=== PATIENT | male | born 1965 | race Caucasian/White ===

== ENCOUNTER 2019-08-23 08:37 | Day surgery (SDC) | payer OTHER ==
[~2019-08-23 08:37] MED LIST: DOK250 MG PO; ENBREL MIN50 MG/1 ML SUB-Q; IBUPROFEN800 MG PO; LEFLUNOMIDE20 MG PO; MAGNESIUM OXID420 MG PO; OMEPRAZOLE20 MG PO; PERCOCET 5-3251 EACH PO; PRAVACHOL40 MG PO; VITAMIN D31000 UNI1 PO; ZYRTEC10 M3 PO
--- NOTE | 2019-08-23 10:03 | NUR ---
08/23/19 Rachell3 Alison Botello 1438-PATIENT ARRIVED TO PACU ON 3L NC PLACED ON 2L NC RR EVEN. PATIENT DROWSY EYES OPEN DENIES PAIN OR NAUSEA. ABDOMEN SOFT. LAYING LEFT LATERAL. IVF INFUSING 1000-PATIENT AROUSING TO VERBAL STIMULI REPOSITIONS SELF IN BED DROWSY BACK TO SLEEP. RR EVEN.
--- NOTE | 2019-08-24 05:57 | OR ---
[facility] [address], [place] [address] Signed DATE OF OPERATION: 08/23/2019 SURGEON: Isabel Salamanca MD PREOPERATIVE DIAGNOSES: 1. Screening. 2. Chronic anal fissure. POSTOPERATIVE DIAGNOSES: 1. Minimal sigmoid diverticulosis. 2. Moderate-sized anal skin tag x1. PROCEDURE: Colonoscopy without biopsy. ESTIMATED BLOOD LOSS: None. INDICATIONS: Aby is a 54-year-old gentleman, who was asked to see me for his initial screening colonoscopy. He spoke of a chronic anal fissure for at least 15 years. He takes a stool softener and says he does fine. Once around, he sees little bleeding if his stool gets too large. Otherwise, he has no lower GI complaints. There is no family history of colon cancer or polyps. In the office, I gave Aby a pamphlet on colonoscopy as well as hemorrhoids, anal fissures and skin tags. We have reviewed colonoscopy in detail along with its risks including, but not limited to gas, bloating, crampy abdominal pain, bleeding, perforation requiring surgery, and missed diagnosis. We also discussed the need for IV conscious sedation. He had expressed understanding and wished to proceed. PROCEDURE NOTE: Aby was taken into our endoscopy suite and placed in the left lateral decubitus position. He was given IV sedation with 8 mg of Versed and 150 mcg of fentanyl. A digital rectal exam was performed. He does have a moderate-sized indurated external anal skin tag. No obvious anal fissure in the anterior posterior midline. He has good sphincter tone. Prostate just a little indurated but not particularly enlarged. The adult colonoscope was introduced and advanced all around into the cecum under direct visualization of camera without difficulty. He had a few seeds in the cecum, so I could not irrigate and suction that out completely. However, we looked around and it was unremarkable. We could see the appendiceal orifice and the ileocecal valve. Pictures Electronically Signed By: ISABEL SALAMANCA MD 08/24/19 0557 PATIENT NAME: ABY YA OPERATIVE REPORT DATE OF : 69 REPORT #: [id number] PHYSICIAN: ISABEL SALAMANCA MD PCP: MARCUS CASILLAS MD REPORT IS CONFIDENTIAL AND NOT TO BE RELEASED WITHOUT AUTHORIZATION [facility] [address], [place] [address] Signed were taken throughout for photodocumentation. The scope was slowly withdrawn. He had a just a few diverticula in the sigmoid colon. They were [id number] in size, few in number, and scattered about. The rectum was unremarkable. Upon retroflexion of scope, he does have some minimal internal hemorrhoid tissue along with this moderate-sized internal anal skin tag. I do not see it at the top as a hypertrophied papillae from a chronic anal fissure. It looks like a very traditional anal skin tag. After this, the gas was suctioned out and the colonoscope removed. Aby tolerated procedure quite well. RECOMMENDATIONS: Aby can follow up in 10 years for repeat colonoscopy. Isabel Salamanca MD ALB/MODL /[id number] cc: MD Isabel Restrepo MD Copies: MARCUS CASILLAS MD, ANDREW L MD ~ Electronically Signed By: ISABEL SALAMANCA MD 08/24/19 0557 PATIENT NAME: ABY YA OPERATIVE REPORT DATE OF : 69 REPORT #: [id number] PHYSICIAN: ISABEL SALAMANCA MD PCP: MARCUS CASILLAS MD REPORT IS CONFIDENTIAL AND NOT TO BE RELEASED WITHOUT AUTHORIZATION
== END 2019-08-23 10:35 | disposition home or self-care (01) ==
LOC: OPS 08:37 → DS 08:42 → OPS 09:45 → DS 09:45 → OPS 10:35
PROVIDERS: Colon & Rectal Surgery
PROC: 0DJD8ZZ Inspection of Lower Intestinal Tract, Via Natural or Artificial Opening Endoscopic (ICD-10-PCS; principal; 2019-08-23 09:45)
DX: Z12.11 Encounter for screening for malignant neoplasm of colon (principal); K64.4 Residual hemorrhoidal skin tags; K64.8 Other hemorrhoids; K57.30 Diverticulosis of large intestine without perforation or abscess without bleeding; K60.1 Chronic anal fissure; M06.9 Rheumatoid arthritis, unspecified; Z88.0 Allergy status to penicillin; Z79.899 Other long term (current) drug therapy
CPT/HCPCS: 99153; G0500; J2250; J3010; J7120

== ENCOUNTER 2025-06-25 13:11 | Emergency (ER) | payer OTHER ==
[~2025-06-25] VITALS: Ht 175.3 cm; Wt 87.0 kg
[2025-06-25 13:46] LABS: BASOPHILS 1.6 % (0.2-1.2); EOSINOPHILS 4.3 % (0.8-7.0); LYMPHOCYTES 29.3 % (21.8-53.1); MCH 29.1 PG (25.7-32.2); MCHC 34.2 g/dL (32.3-36.5); MCV 85.2 fL (79.0-92.2); MONOCYTES 15.2 % (5.3-12.2); NEUTROPHILS 49.4 % (34.0-67.9); RBC 5.49 M/uL (4.63-6.08)
[2025-06-25 14:08] LABS: ALT (SGPT) 36.0 U/L (14-59); AST (SGOT) 33.0 U/L (15-37); GLOMERULAR FILTRATION RATE,EST 103.0 mL/min (>60); PROTEIN, TOTAL 8.1 g/dL (6.4-8.2); UREA NITROGEN 14.0 mg/dL (7-18)
[2025-06-25] MEDS ORDERED: ASPIRIN 325 MG TAB PO ONE (16:00)
[2025-06-25] MEDS ORDERED: ASPIRIN81 MG PO (16:04)
[2025-06-25] MEDS ORDERED: LISINOPRIL5 MG PO (16:04)
[2025-06-25 16:30] VITALS: BP 111/76
--- NOTE | 2025-06-27 18:24 | EKG ---
[facility] [address] [facility] [place] [address] Signed Sinus rhythm with occasional premature ventricular complexes Otherwise normal ECG No previous ECGs available Confirmed by Sintia Rutledge DO ([id number]) on 06/27/2025 6:24:00 PM Electronically Signed By: SINTIA RUTLEDGE DO 06/27/25 182 PATIENT NAME: ABY YA Electrocardiogram DATE OF : 69 PHYSICIAN: SINTIA RUTLEDGE DO REPORT #: [id number] REPORT IS CONFIDENTIAL AND NOT TO BE RELEASED WITHOUT AUTHORIZATION
== END 2025-06-25 16:30 | disposition home or self-care (01) ==
LOC: ED 13:11
PROVIDERS: Emergency Medicine
DX: I10 Essential (primary) hypertension (principal); R20.2 Paresthesia of skin; E11.9 Type 2 diabetes mellitus without complications; M06.9 Rheumatoid arthritis, unspecified; Z88.0 Allergy status to penicillin; Z88.8 Allergy status to other drugs, medicaments and biological substances; Z79.899 Other long term (current) drug therapy
CPT/HCPCS: 36415; 70450; 80053; 83735; 84484; 85025; 93005; 93010; 99284-25